=== PATIENT | female | born 1970 | race Caucasian/White ===

== ENCOUNTER 2022-10-13 23:27 | Observation (INO) | payer BC ==
[2022-10-14 00:40] LABS: HEMATOCRIT 26.7 % (32.4-45.2); HEMOGLOBIN 8.6 GM/dL (10.7-15.3); MCH 23.5 pg (25.7-33.7); MCHC 32.2 g/dl (32.0-36.0); MEAN CELL VOLUME 72.9 fl (80-96); MEAN PLT VOLUME 6.7 fl (7.5-11.1); PLATELET COUNT 338 10^3/uL (134-434); RBC 3.66 M/mm3 (3.60-5.2); RDW 17.8 % (11.6-15.6); WHITE BLOOD COUNT 6.7 K/mm3 (4.0-10.0)
[2022-10-14 00:43] LABS: EPI CELLS 15 /uL (0-25.1); HYALINE CASTS 0 /uL (0-3.1); PH,URINE 6.5 (5.0-8.0); URINE APPEARANCE CLEAR; URINE BACTERIA 285 /uL (0-1359); URINE BILIRUBIN NEGATIVE (NEGATIVE); URINE COLOR YELLOW; URINE GLUCOSE (UA) NEGATIVE (NEGATIVE); URINE KETONE NEGATIVE (NEGATIVE); URINE LEUK ESTERASE TRACE (NEGATIVE); URINE NITRITE NEGATIVE (NEGATIVE); URINE PROTEIN NEGATIVE (NEGATIVE); URINE RBC 6 /uL (0-23.9); URINE WBC 11 /uL (0-25.8)
[2022-10-14 01:14] LABS: CALCIUM 8.7 mg/dL (8.5-10.1)
[2022-10-14 01:15] LABS: ALBUMIN 3.6 g/dl (3.4-5.0); BLOOD UREA NITROGEN 14.9 mg/dL (7-18)
[2022-10-14 01:18] LABS: CREATININE 0.7 mg/dL (0.55-1.3)
[2022-10-14 01:20] LABS: BILIRUBIN,TOTAL 0.4 mg/dL (0.2-1); TOT PROT 7.4 g/dl (6.4-8.2)
[2022-10-14] MEDS ORDERED: ACETAMINOPHEN 325 MG TABLET (FP) PO PRN (01:45)
[2022-10-14 02:40] VITALS: BMI 41.5
[2022-10-14] MEDS ORDERED: IRON POLYSACCHARIDES 150 MG CAPSULE PO SCH (10:00)
[2022-10-14 10:49] VITALS: BP 120/70; PULSE 67; RESP 17; TEMP 98.7
== END 2022-10-14 11:12 | disposition home or self-care (01) ==
LOC: FER 23:27 → FM/S 10-14 01:35
PROVIDERS: ADMIT Internal Medicine; ATTEND Internal Medicine
DX: G43.909 Migraine, unspecified, not intractable, without status migrainosus (principal); G45.9 Transient cerebral ischemic attack, unspecified; R41.0 Disorientation, unspecified; Z87.891 Personal history of nicotine dependence; Z88.8 Allergy status to other drugs, medicaments and biological substances; E66.01 Morbid (severe) obesity due to excess calories; Z68.41 Body mass index [BMI] 40.0-44.9, adult
CPT/HCPCS: 0241U-QW; 36415; 70450-TC; 70551-TC; 71045-TC-FY; 80053; 80061; 81003; 85027; 93005; 93880-TC; 99285-25; G0378

== ENCOUNTER 2024-01-22 20:10 | Emergency (ER) | payer BC ==
[2024-01-22 20:56] VITALS: BP 120/75; PULSE 94; RESP 16; TEMP 98.5; BMI 39.6
[2024-01-22 22:34] LABS: HEMATOCRIT 22.5 % (32.4-45.2); HEMOGLOBIN 7.1 G/dL (10.7-15.3); MCH 24.5 pg (25.7-33.7); MCHC 31.4 g/dl (32.0-36.0); MEAN CELL VOLUME 77.7 fl (80-96); MEAN PLT VOLUME 7.4 fl (7.5-11.1); PLATELET COUNT 207.8 10^3/uL (134-434); RBC 2.89 10^6/uL (3.60-5.2); RDW 20.2 % (11.6-15.6); WHITE BLOOD COUNT 6.8 10^3/uL (4.0-10.8)
[2024-01-22 22:50] LABS: PLATELET ESTIMATE ADEQUATE
== END 2024-01-23 00:07 | disposition home or self-care (01) ==
LOC: FER 20:10
DX: R07.89 Other chest pain (principal); D50.0 Iron deficiency anemia secondary to blood loss (chronic)
CPT/HCPCS: 36415; 84484; 85027; 93005; 99284-25